=== PATIENT | female | born 2000 | race Hispanic/Latino ===

== ENCOUNTER 2024-12-27 18:00 | Inpatient (IN) | payer OTHER ==
[2024-12-27 18:55] VITALS: BMI 32.5
[2024-12-27] MEDS ORDERED: Carboprost 250 MCG/ML AMP IM PRN (21:00)
[2024-12-27] MEDS ORDERED: Methylergonovine 0.2 MG/ML VIAL IM PRN (21:00)
[2024-12-27] MEDS ORDERED: Tranexamic Acid 1,000 MG/10 ML VIAL IVP PRN (21:00)
[2024-12-27] MEDS ORDERED: Lidocaine 1% (PF) 30 ML VIAL SC PRN (21:00)
[2024-12-27] MEDS ORDERED: Acetaminophen 500 MG TAB PO PRN (21:00)
[2024-12-27] MEDS ORDERED: hydrALAZINE 20 MG/ML VIAL SLOW IVP PRN (21:00)
[2024-12-27] MEDS ORDERED: Ondansetron PF 4 MG/2 ML Vial IVP PRN (21:00)
[2024-12-27] MEDS ORDERED: Diphenoxylate HCl/Atropine Tablet PO PRN (21:00)
[2024-12-27] MEDS ORDERED: Ibuprofen 800 MG TAB PO PRN (21:00)
[2024-12-27] MEDS ORDERED: HYDROcodone/Acetaminophen 5/325 mg Tablet PO PRN (21:00)
[2024-12-27] MEDS ORDERED: Oxytocin 30 units/NS 500 ML 500 ML IV SCH ×2 (21:00)
[2024-12-27 22:02] LABS: Hematocrit 37.3 % (34.9-44.5); Hemoglobin 12.5 g/dL (12.0-15.5); Mean Corpuscular Hemoglobin 27.7 pg (27.0-33.0); Mean Corpuscular Volume 82.7 fL (81.6-98.3); Platelet Count 215 10x3/uL (150-450); Red Blood Cell (RBC) Count 4.51 10x6/uL (3.90-5.03); White Blood Cell (WBC) Count 8.28 10x3/uL (3.5-10.5)
[2024-12-27 22:57] LABS: Syphilis Antibody Index 0.05 S/CO (<1.00 Non-Reactive)
[2024-12-27 22:59] LABS: Hep B Surf Ag - L&D Non-Reactive S/CO (NonReactive)
[2024-12-28] MEDS: fentaNYL/Ropivacaine Epidural 100 ML ONE (00:51)
[2024-12-28] MEDS ORDERED: Acetaminophen 325 MG TAB PO PRN (01:21)
[2024-12-28] MEDS ORDERED: Ondansetron PF 4 MG/2 ML Vial IVP PRN ×4 (01:21→11:02)
[2024-12-28] MEDS ORDERED: diphenhydrAMINE 50 MG/ML VIAL IVP PRN ×2 (01:21→06:52)
[2024-12-28] MEDS ORDERED: fentaNYL 2 mcg/Ropivacaine 0.2% Epidural 100 ML CADD EPIDURAL SCH (01:30)
[2024-12-28] MEDS ORDERED: Communication Order-Pharmacy FS SCH ×2 (01:30→07:00)
[2024-12-28 06:46] LABS: Analyzer IN Cardio CS NICU; RapidComm Collect By OR nurse; pH (Cord, venous) 7.267 (7.250-7.350)
[2024-12-28 06:47] LABS: Analyzer IN Cardio CS NICU; RapidComm Collect By OR nurse
[2024-12-28] MEDS ORDERED: Meperidine HCl/PF 25 MG (1 mL) VIAL SLOW IVP PRN (06:52)
[2024-12-28] MEDS ORDERED: Ketorolac Tromethamine 30 MG (1 mL) VIAL IVP PRN (06:52)
[2024-12-28] MEDS: Ketorolac Tromethamine 30 MG (1 mL) VIAL IVP SCH ×2 (08:28→14:40)
[2024-12-28] MEDS: Azithromycin 500 MG VIAL ONE (08:54)
[2024-12-28] MEDS: CEFAZOLIN 2 GM VIAL ONE (08:54)
[2024-12-28] MEDS: Lidocaine 2% MPF 10 ML AMP (For Epidural Use) ONE (08:54)
[2024-12-28] MEDS: Dexamethasone 10 MG/ML VIAL ONE (08:55)
[2024-12-28] MEDS: Oxytocin 10 UNITS/ML VIAL ONE ×2 (08:55)
[2024-12-28] MEDS: PHENYLEPHRINE-NS 100 MCG/ML 10 ML SYRINGE ONE (08:55)
[2024-12-28] MEDS: Ondansetron PF 4 MG/2 ML Vial ONE (08:55)
[2024-12-28] MEDS ORDERED: Lanolin Ointment 7 GM TUBE TOP PRN (11:02)
[2024-12-28] MEDS ORDERED: diphenhydrAMINE 25 MG CAP PO PRN (11:02)
[2024-12-28] MEDS ORDERED: hydrALAZINE 20 MG/ML VIAL SLOW IVP PRN (11:02)
[2024-12-28] MEDS ORDERED: Boostrix 0.5 ML (Tdap) VIAL (>/=7 yrs of age) IM ONE (11:02)
[2024-12-28] MEDS ORDERED: Bisacodyl 10 MG SUPP PR PRN (11:02)
[2024-12-28] MEDS: Ferrous Sulfate 325 MG TAB PO SCH ×2 (14:37→21:48)
[2024-12-28] MEDS ORDERED: Meperidine HCl/PF 25 MG (1 mL) VIAL IM PRN (19:00)
[2024-12-28] MEDS ORDERED: Bupivacaine/Epinephrine 0.25% 30 ML VIAL ONE (19:17)
[2024-12-28] MEDS: HYDROcodone/Acetaminophen 5/325 mg Tablet PO PRN (19:28)
[2024-12-29 05:32] LABS: Hematocrit 29.2 % (34.9-44.5); Hemoglobin 9.4 g/dL (12.0-15.5); Mean Corpuscular Hemoglobin 27.4 pg (27.0-33.0); Mean Corpuscular Volume 85.1 fL (81.6-98.3); Platelet Count 156 10x3/uL (150-450); Red Blood Cell (RBC) Count 3.43 10x6/uL (3.90-5.03); White Blood Cell (WBC) Count 13.07 10x3/uL (3.5-10.5)
[2024-12-29] MEDS: Simethicone Chewable 80 MG TAB PO PRN (09:49)
[2024-12-29] MEDS: Ketorolac Tromethamine 30 MG (1 mL) VIAL ONE (09:50)
[2024-12-29] MEDS: Ibuprofen 800 MG TAB PO SCH (13:49)
[2024-12-29] MEDS: HYDROcodone/Acetaminophen 5/325 mg Tablet PO PRN (13:49)
[2024-12-31 09:03] VITALS: BP 110/66; TEMP 98.5
== END 2024-12-31 17:56 | disposition home or self-care (01) | DRG 788 ==
LOC: CSHLD 18:00 → CSHPP 12-28 09:56
PROVIDERS: ADMIT Family Medicine; ATTEND Family Medicine
PROC: 10D00Z1 Extraction of Products of Conception, Low, Open Approach (ICD-10-PCS; principal; 2024-12-27)
DX: O48.0 Post-term pregnancy (principal); Z37.0 Single live birth; Z3A.40 40 weeks gestation of pregnancy
CPT/HCPCS: 36415; 51702; 82805; 85027; 86780; 86850; 86900; 86901; 87340; J1100; J1885; J2274; J2405; J2590; J3010; J3105